=== PATIENT | female | born 1995 | race African-American/Black ===

== ENCOUNTER 2019-05-20 14:22 | Emergency (ER) | payer SELFPAY ==
[~2019-05-20] VITALS: Ht 170.2 cm; Wt 74.0 kg
[2019-05-20] MEDS ORDERED: SODIUM CHLORIDE 0.9% 1,000 ML IV ONE (14:39)
[2019-05-20 15:48] LABS: CHLORIDE 109 mEq/L (98-107)
[2019-05-20 15:52] LABS: BASOPHILS % 1.1 % (0.0-2.0); EOSINOPHILS % 1.1 % (0.0-5.0); HEMATOCRIT. 43.8 % (36.0-48.0); HEMOGLOBIN. 14.7 g/dL (12.0-16.0); LYMPHOCYTES % 29.4 % (20.0-50.0); MEAN CORPUSCULAR HEMOGLOBIN 32.3 pg (28.0-32.0); MEAN CORPUSCULAR VOLUME 96.3 fL (81.0-99.0); MONOCYTES % 5.4 % (2.0-8.0); PLATELET 331 x1000/uL (130-400); RED BLOOD CELL COUNT 4.55 mill/uL (4.2-5.4); RED CELL DISTRIBUTION WIDTH 13.1 % (11.6-14.6)
[2019-05-20 15:54] LABS: ETHANOL BLOOD < 10 mg/dL
[2019-05-20] MEDS ORDERED: ONDANSETRON HCL 4MG/2ML INJ IV ONE (16:15)
[2019-05-20 21:09] VITALS: BP 110/72
== END 2019-05-20 21:16 | disposition home or self-care (01) ==
LOC: ER 14:22
DX: T40.7X1A Poisoning by cannabis (derivatives), accidental (unintentional), initial encounter (principal); F12.129 Cannabis abuse with intoxication, unspecified; Y92.59 Other trade areas as the place of occurrence of the external cause
CPT/HCPCS: 36415; 80053; 80320; 85025; 96374; 99283; J2405; J7030; Z7610; G0480